=== PATIENT | female | born 1985 | race Caucasian/White ===

== ENCOUNTER 2018-12-28 23:54 | Emergency (ER) | payer SELFPAY ==
[2018-12-29 00:29] LABS: URINE BLOOD (Dip) POC 2+ (NEGATIVE); URINE GLUCOSE (Dip) POC Negative (NEGATIVE); URINE KETONES (Dip) POC 2+ (NEGATIVE); URINE LEUKOCYTE EST (Dip) POC 1+ (NEGATIVE); URINE NITRITE (Dip) POC Positive (NEGATIVE); URINE TOTAL PROTEIN POC 3+ (NEGATIVE)
[2018-12-29 00:44] LABS: ADD MAN DIFF? NO
[2018-12-29] MEDS: SODIUM CHLORIDE 0.9% 1L BAG IV* (00:45)
[2018-12-29 00:47] LABS: WHITE BLOOD COUNT 11.9 10^3/ul (4.8-10.8)
[2018-12-29 00:47] LABS: BASOPHILS % 0.2 % (0.0-2.0); EOSINOPHILS % 0.3 % (0.0-7.0); HEMATOCRIT 39.7 % (37.0-47.0); HEMOGLOBIN 13.2 g/dl (12.0-16.0); LYMPHOCYTES # 0.7 10^3/ul (0.8-2.9); LYMPHOCYTES % 5.5 % (15.0-51.0); MEAN CORPUSCULAR HEMOGLOBIN 29.7 pg (29.0-33.0); MEAN CORPUSCULAR HGB CONC 33.2 g/dl (32.0-37.0); MEAN CORPUSCULAR VOLUME 89.4 fl (82.0-101.0); MEAN PLATELET VOLUME 10.4 fl (7.4-10.4); MONOCYTE # 0.9 10^3/ul (0.3-0.9); MONOCYTES % 7.2 % (0.0-11.0); NEUTROPHIL # 10.2 10^3/ul (1.6-7.5); NEUTROPHILS % 85.7 % (39.0-77.0); PLATELET COUNT 298 10^3/UL (140-415); RED BLOOD COUNT 4.44 10^6/ul (4.20-5.40); RED CELL DISTRIBUTION WIDTH 13.3 % (11.5-14.5)
[2018-12-29] MEDS: ACETAMINOPHEN 500 MG TAB PO (00:47)
[2018-12-29 00:54] LABS: ALANINE AMINOTRANSFERASE 96 IU/L (13-69); ALBUMIN 3.9 g/dl (3.3-4.9); ALBUMIN/GLOBULIN RATIO 0.84; ALKALINE PHOSPHATASE 192 IU/L (42-121); ANION GAP 11 (5-13); ASPARTATE AMINO TRANSFERASE 87 IU/L (15-46); BILIRUBIN,INDIRECT 0.7 mg/dl (0-1.1); BILIRUBIN,TOTAL 0.8 mg/dl (0.2-1.3); BLOOD UREA NITROGEN 9 mg/dl (7-20); CARBON DIOXIDE 26 mmol/L (21-31); CHLORIDE 100 mmol/L (97-110); CREATININE 0.88 mg/dl (0.44-1.00); Estimated GFR > 60 mL/min (>60); GLUCOSE 153 mg/dl (70-220); SODIUM 137 mmol/L (135-144); TOTAL PROTEIN 8.5 g/dl (6.1-8.1)
[2018-12-29 01:00] LABS: POTASSIUM 2.9 mmol/L (3.5-5.1)
[2018-12-29 01:30] LABS: C-REACTIVE PROTEIN 24.1 mg/dl (0.0-0.9)
[2018-12-29] MEDS: CEFTRIAXONE 1 GM/50 ML (PMX) 50 ML IVPB (02:40)
[2018-12-29 02:52] LABS: ADD UMIC YES; UR ASCORBIC ACID 20 mg/dL (NEGATIVE); UR BACTERIA FEW /HPF (NONE SEEN); UR BILIRUBIN (Dip) 1+ mg/dL (NEGATIVE); UR BLOOD (Dip) 2+ mg/dL (NEGATIVE); UR CLARITY CLOUDY (CLEAR); UR COLOR AMBER (YELLOW); UR GLUCOSE (Dip) NEGATIVE (NEGATIVE); UR KETONES (Dip) 1+ mg/dL (NEGATIVE); UR LEUKOCYTE ESTERASE (Dip) 2+ Leu/ul (NEGATIVE); UR NITRITE (Dip) POSITIVE (NEGATIVE); UR NONSQUAMOUS EPITHELIAL CELL 2 /HPF (NONE SEEN); UR RBC 28 /HPF (0-5); UR SPECIFIC GRAVITY (Dip) 1.025 (1.003-1.030); UR SQUAMOUS EPITHELIAL CELL FEW /HPF (FEW); UR TOTAL PROTEIN (Dip) 3+ mg/dl (NEGATIVE); UR UROBILINOGEN (Dip) 2+ mg/dL (NEGATIVE); UR WBC > 182 /HPF (0-5)
[2018-12-29] MEDS: POTASSIUM CHLORIDE (SR) 20 MEQ TAB PO (03:42)
== END 2018-12-29 04:23 | disposition home or self-care (01) ==
LOC: E/R 23:54
DX: N12 Tubulo-interstitial nephritis, not specified as acute or chronic (principal); R55 Syncope and collapse
CPT/HCPCS: 36415; 70450; 71045; 72131; 80053; 81001; 81003; 81025; 83605; 85025; 86140; 87040-91; 87086; 93005; 96374; 99285-25

== ENCOUNTER 2018-12-30 11:59 | Inpatient (IN) | payer MEDICAID ==
[2018-12-30 12:52] LABS: ADD MAN DIFF? NO
[2018-12-30 12:54] LABS: WHITE BLOOD COUNT 5.5 10^3/ul (4.8-10.8)
[2018-12-30 12:54] LABS: BASOPHILS % 0.4 % (0.0-2.0); EOSINOPHILS % 0.7 % (0.0-7.0); HEMATOCRIT 36.3 % (37.0-47.0); HEMOGLOBIN 11.5 g/dl (12.0-16.0); LYMPHOCYTES # 0.8 10^3/ul (0.8-2.9); LYMPHOCYTES % 14.2 % (15.0-51.0); MEAN CORPUSCULAR HEMOGLOBIN 29.4 pg (29.0-33.0); MEAN CORPUSCULAR HGB CONC 31.7 g/dl (32.0-37.0); MEAN CORPUSCULAR VOLUME 92.8 fl (82.0-101.0); MEAN PLATELET VOLUME 9.9 fl (7.4-10.4); MONOCYTE # 0.6 10^3/ul (0.3-0.9); MONOCYTES % 11.5 % (0.0-11.0); NEUTROPHILS % 72.5 % (39.0-77.0); PLATELET COUNT 309 10^3/UL (140-415); RED BLOOD COUNT 3.91 10^6/ul (4.20-5.40); RED CELL DISTRIBUTION WIDTH 13.6 % (11.5-14.5)
[2018-12-30] MEDS: SODIUM CHLORIDE 0.9% 1L BAG IV* (12:54)
[2018-12-30] MEDS: CEFTRIAXONE 1 GM/50 ML (PMX) 50 ML IVPB ×2 (12:54→14:01)
[2018-12-30] MEDS ORDERED: ONDANSETRON 4 MG INJ IV ×2 (13:00)
[2018-12-30] MEDS ORDERED: ACETAMINOPHEN 325 MG TAB PO (13:00)
[2018-12-30 13:08] LABS: UR BACTERIA FEW /HPF (NONE SEEN); UR MUCUS FEW /HPF (NONE SEEN); UR RBC 5 /HPF (0-5); UR SQUAMOUS EPITHELIAL CELL MODERATE /HPF (FEW); UR WBC 28 /HPF (0-5)
[2018-12-30 13:11] LABS: ANION GAP 8 (5-13); BLOOD UREA NITROGEN 9 mg/dl (7-20); CALCIUM 8.8 mg/dl (8.4-10.2); CARBON DIOXIDE 27 mmol/L (21-31); CHLORIDE 102 mmol/L (97-110); CREATININE 0.79 mg/dl (0.44-1.00); Estimated GFR > 60 mL/min (>60); GLUCOSE 123 mg/dl (70-220); POTASSIUM 3.3 mmol/L (3.5-5.1); SODIUM 137 mmol/L (135-144)
[2018-12-30 13:29] LABS: ADD UMIC YES; UR ASCORBIC ACID 40 mg/dL (NEGATIVE); UR BILIRUBIN (Dip) 1+ mg/dL (NEGATIVE); UR BLOOD (Dip) NEGATIVE (NEGATIVE); UR CLARITY CLOUDY (CLEAR); UR COLOR AMBER (YELLOW); UR GLUCOSE (Dip) NEGATIVE (NEGATIVE); UR KETONES (Dip) NEGATIVE (NEGATIVE); UR LEUKOCYTE ESTERASE (Dip) 1+ Leu/ul (NEGATIVE); UR NITRITE (Dip) NEGATIVE (NEGATIVE); UR TOTAL PROTEIN (Dip) 2+ mg/dl (NEGATIVE); UR UROBILINOGEN (Dip) 2+ mg/dL (NEGATIVE)
[2018-12-30] MEDS: SOD CHLORIDE 0.9% 1,000 ML IV ×2 (14:39→20:48)
[2018-12-30] MEDS: DOCUSATE SODIUM 100 MG CAP PO (14:39)
[2018-12-30] MEDS: POTASSIUM CHLORIDE (SR) 20 MEQ TAB PO (14:41)
[2018-12-30 14:46] LABS: LACTIC ACID 1.1 mmol/L (0.5-2.0)
[2018-12-30] MEDS: AMLODIPINE 2.5 MG TAB PO (15:44)
[2018-12-30 17:09] LABS: LACTIC ACID 1.7 mmol/L (0.5-2.0)
[2018-12-30] MEDS: ACETAMINOPHEN 325 MG TAB PO (20:51)
[2018-12-31] MEDS: DOCUSATE SODIUM 100 MG CAP PO ×2 (00:41→13:52)
[2018-12-31] MEDS: SOD CHLORIDE 0.9% 1,000 ML IV ×3 (00:41→22:45)
[2018-12-31 06:55] LABS: ADD MAN DIFF? NO
[2018-12-31 07:01] LABS: WHITE BLOOD COUNT 5.9 10^3/ul (4.8-10.8)
[2018-12-31 07:01] LABS: BASOPHILS % 0.3 % (0.0-2.0); EOSINOPHILS # 0.1 10^3/ul (0.0-0.5); EOSINOPHILS % 1.5 % (0.0-7.0); LYMPHOCYTES # 1.5 10^3/ul (0.8-2.9); MEAN CORPUSCULAR HEMOGLOBIN 29.6 pg (29.0-33.0); MEAN CORPUSCULAR HGB CONC 32.4 g/dl (32.0-37.0); MEAN CORPUSCULAR VOLUME 91.4 fl (82.0-101.0); MEAN PLATELET VOLUME 9.8 fl (7.4-10.4); MONOCYTES % 16.4 % (0.0-11.0); NEUTROPHIL # 3.3 10^3/ul (1.6-7.5); PLATELET COUNT 329 10^3/UL (140-415); RED BLOOD COUNT 3.72 10^6/ul (4.20-5.40); RED CELL DISTRIBUTION WIDTH 13.4 % (11.5-14.5)
[2018-12-31 07:30] LABS: HEMOGLOBIN A1C 5.3 % (0-5.9)
[2018-12-31 07:35] LABS: Estimated GFR > 60 mL/min (>60)
[2018-12-31 07:41] LABS: CHOLESTEROL 142 mg/dl (100-200)
[2018-12-31 07:41] LABS: CHOL/HDL RATIO 9.4 RATIO; HDL CHOLESTEROL 15 mg/dl (34-82); LDL CHOLESTEROL,CALCULATED 91 mg/dl; TRIGLYCERIDES 180 mg/dl (0-149)
[2018-12-31 08:06] LABS: ANION GAP 6 (5-13); BLOOD UREA NITROGEN 5 mg/dl (7-20); CALCIUM 8.3 mg/dl (8.4-10.2); CARBON DIOXIDE 26 mmol/L (21-31); CHLORIDE 105 mmol/L (97-110); CREATININE 0.77 mg/dl (0.44-1.00); GLUCOSE 98 mg/dl (70-220); MAGNESIUM 1.7 mg/dl (1.7-2.5); SODIUM 137 mmol/L (135-144)
[2018-12-31] MEDS: AMLODIPINE 2.5 MG TAB PO (08:49)
[2018-12-31] MEDS: ACETAMINOPHEN 325 MG TAB PO ×2 (08:49→18:08)
[2018-12-31] MEDS: POTASSIUM CHLORIDE (SR) 20 MEQ TAB PO (13:52)
[2018-12-31] MEDS: MAGNESIUM SULFATE 1 GM/D5W 100 ML IVPB (14:18)
[2018-12-31] MEDS: FISH OIL 1,000 MG CAP PO (20:34)
[2019-01-01] MEDS: DOCUSATE SODIUM 100 MG CAP PO ×2 (00:39→14:28)
[2019-01-01] MEDS: SOD CHLORIDE 0.9% 1,000 ML IV ×3 (05:51→20:48)
[2019-01-01] MEDS: FISH OIL 1,000 MG CAP PO ×2 (08:58→20:53)
[2019-01-01] MEDS: AMLODIPINE 5 MG TAB PO (08:59)
[2019-01-01] MEDS: CEFTRIAXONE 1 GM/50 ML (PMX) 50 ML IVPB (14:26)
[2019-01-01] MEDS: ACETAMINOPHEN 325 MG TAB PO (14:28)
[2019-01-01] MEDS: POTASSIUM CHLORIDE (SR) 20 MEQ TAB PO ×2 (14:28→20:53)
[2019-01-01] MEDS: FLUCONAZOLE 200 MG TAB PO (14:28)
[2019-01-02] MEDS: DOCUSATE SODIUM 100 MG CAP PO ×2 (01:00→14:14)
[2019-01-02] MEDS: SOD CHLORIDE 0.9% 1,000 ML IV (02:01)
[2019-01-02 07:48] LABS: WHITE BLOOD COUNT 7.1 10^3/ul (4.8-10.8)
[2019-01-02 07:48] LABS: HEMATOCRIT 38.9 % (37.0-47.0); HEMOGLOBIN 12.6 g/dl (12.0-16.0); MEAN CORPUSCULAR HGB CONC 32.4 g/dl (32.0-37.0); MEAN CORPUSCULAR VOLUME 89.6 fl (82.0-101.0); MEAN PLATELET VOLUME 9.1 fl (7.4-10.4); PLATELET COUNT 478 10^3/UL (140-415); RED BLOOD COUNT 4.34 10^6/ul (4.20-5.40); RED CELL DISTRIBUTION WIDTH 13.2 % (11.5-14.5)
[2019-01-02 07:57] LABS: ADD MAN DIFF? YES; POSITIVE DIFF @See below
[2019-01-02 08:14] LABS: ANION GAP 8 (5-13); BLOOD UREA NITROGEN 8 mg/dl (7-20); CARBON DIOXIDE 27 mmol/L (21-31); CHLORIDE 105 mmol/L (97-110); CREATININE 0.71 mg/dl (0.44-1.00); Estimated GFR > 60 mL/min (>60); GLUCOSE 95 mg/dl (70-220); POTASSIUM 3.7 mmol/L (3.5-5.1); SODIUM 140 mmol/L (135-144)
[2019-01-02] MEDS: POTASSIUM CHLORIDE (SR) 20 MEQ TAB PO (09:33)
[2019-01-02] MEDS: FLUCONAZOLE 200 MG TAB PO (09:33)
[2019-01-02] MEDS: FISH OIL 1,000 MG CAP PO (09:33)
[2019-01-02] MEDS: AMLODIPINE 5 MG TAB PO (09:34)
[2019-01-02 09:50] LABS: ANISOCYTOSIS 1+ (0-0); BAND NEUTROPHILS #M 0.3 10^3/ul (0.0-0.6); BAND NEUTROPHILS % (M) 5 % (0-4); EOSINOPHILS % (M) 1 % (0-7); LYMPHOCYTES #M 1.6 10^3/ul (0.8-2.9); LYMPHOCYTES % (M) 23 % (15-51); MONOCYTE #M 0.4 10^3/ul (0.3-0.9); MONOCYTES % (M) 6 % (0-11); MYELOCYTES % (M) 1 % (0-0); PLATELET ESTIMATE NORMAL; POIKILOCYTOSIS 1+ (0-0); REACTIVE LYMPHOCYTES #M 1.1 10^3/ul (0.0-0.0); REACTIVE LYMPHOCYTES% (M) 16 % (0-0); SEG NEUT #M 3.4 10^3/ul (1.6-7.5); SEGMENTED NEUTROPHILS (M) % 48 % (39-77); SMUDGE%M 5 % (0-0)
[2019-01-02] MEDS: CEFTRIAXONE 1 GM/50 ML (PMX) 50 ML IVPB (14:14)
== END 2019-01-02 19:30 | disposition home or self-care (01) | DRG 872 ==
LOC: E/R 11:59 → PP2 12:56
DX: A41.9 Sepsis, unspecified organism (principal); N10 Acute pyelonephritis; B37.49 Other urogenital candidiasis; B96.89 Other specified bacterial agents as the cause of diseases classified elsewhere; E66.9 Obesity, unspecified; Z68.31 Body mass index [BMI] 31.0-31.9, adult; E87.6 Hypokalemia; I10 Essential (primary) hypertension; D64.9 Anemia, unspecified
CPT/HCPCS: 80048; 80061; 81001; 81025; 83036; 83605; 83735; 85025; 87040-91; 87086; 93005; 96374; 99285-25